=== PATIENT | female | born 1980 | race Caucasian/White ===

== ENCOUNTER 2021-04-19 10:26 | Inpatient (IN) | payer OTHER ==
[2021-04-19 11:24] LABS: BASO % 0.7 % (0-2.0); EOS % 0.7 % (0-4.5); HEMATOCRIT 26.1 % (32.4-45.2); HEMOGLOBIN 8.2 GM/dL (10.7-15.3); LYMPH % 15.1 % (8-40); MCHC 31.6 g/dl (32.0-36.0); MEAN CELL VOLUME 63.2 fl (80-96); MEAN PLT VOLUME 6.8 fl (7.5-11.1); MONO % 8.1 % (3.8-10.2); NEUT % 75.4 % (42.8-82.8); PLATELET COUNT 279 10^3/uL (134-434); RBC 4.12 M/mm3 (3.60-5.2); RDW 18.1 % (11.6-15.6); WHITE BLOOD COUNT 9.8 K/mm3 (4.0-10.0)
[2021-04-19 11:33] LABS: INR 0.92 (0.83-1.09); PROTHROMBIN TIME (PATIENT) 11.3 SEC (9.7-13.0)
[2021-04-19 11:35] LABS: ACTIVATED PTT 21.4 SECONDS (25.2-36.5)
[2021-04-19 11:44] LABS: BLOOD UREA NITROGEN 8.4 mg/dL (7-18); CALCIUM 8.3 mg/dL (8.5-10.1)
[2021-04-19 11:47] LABS: CREATININE 0.5 mg/dL (0.55-1.3)
[2021-04-19 11:54] VITALS: BMI 33.6
[2021-04-19] MEDS ORDERED: ELECTROLYTE-148 SOLN 1,000 ML IV SCH (12:00)
[2021-04-19] MEDS ORDERED: FENTANYL/BUPIVACAINE/NS/PF - PCEA - 50 ML DISP.SYRIN EP ONE ×2 (12:09→14:48)
[2021-04-19] MEDS ORDERED: PCA PUMP NR ONE (12:09)
[2021-04-19] MEDS ORDERED: BUPIVACAINE HCL/PF 0.25% (2.5MG/ML) 10 ML VIAL ONE ×2 (12:18→15:35)
[2021-04-19 12:41] LABS: HIV INTERPRETATION NEGATIVE (NEGATIVE)
[2021-04-19] MEDS ORDERED: NALOXONE HCL 0.4 MG/ML VIAL IVPUSH PRN (12:43)
[2021-04-19] MEDS ORDERED: FENTANYL/BUPIVACAINE/NS/PF - PCEA - 50 ML DISP.SYRIN EP SCH (12:45)
[2021-04-19 14:28] LABS: ANISOCYTOSIS 2+; MACROCYTOSIS 0; OVALOCYTE 1+; PLATELET ESTIMATE NORMAL
[2021-04-19] MEDS ORDERED: OXYTOCIN 30 UNITS in 0.9% NS 30 UNIT/500 ML INFUS.BAG IVPB SCH (15:15)
[2021-04-19] MEDS ORDERED: OXYTOCIN 30 UNITS in 0.9% NS 30 UNIT/500 ML INFUS.BAG IVPB ONE (15:19)
[2021-04-19] MEDS ORDERED: OXYTOCIN 20 UNITS in 0.9% NS 20 UNIT/1,000 ML INFUS.BAG IV ONE (16:06)
[2021-04-19] MEDS ORDERED: LIDOCAINE HCL 1% PRESERVATIVE FREE - 30ML VIAL ONE (16:07)
[2021-04-19] MEDS ORDERED: BISACODYL 10 MG SUPP.RECT RC PRN (16:26)
[2021-04-19] MEDS ORDERED: BENZOCAINE 28 GM HEMORRHOIDAL OINTMENT TP PRN (16:26)
[2021-04-19] MEDS ORDERED: WITCH HAZEL 50% (TUCKS) 40 PAD/JAR PAD TP PRN (16:26)
[2021-04-19] MEDS ORDERED: METHYLERGONOVINE MALEATE 0.2 MG/1 ML AMP IM PRN (16:26)
[2021-04-19] MEDS ORDERED: BENZOCAINE 20% 57 GM BOTTLE TP PRN (16:26)
[2021-04-19] MEDS ORDERED: ACETAMINOPHEN 325 MG TABLET (FP) PO PRN (16:26)
[2021-04-19] MEDS ORDERED: oxyCODONE HCL 5 MG TABLET PO PRN (16:26)
[2021-04-19] MEDS ORDERED: OXYTOCIN 20 UNITS in 0.9% NS 20 UNIT/1,000 ML INFUS.BAG IV SCH (16:30)
[2021-04-19] MEDS ORDERED: IBUPROFEN 600 MG TABLET (FP) PO ONE (17:06)
[2021-04-19] MEDS: IBUPROFEN 600 MG TABLET (FP) PO PRN ×2 (17:10→20:21)
[2021-04-20 08:20] LABS: BASO % 0.5 % (0-2.0); HEMATOCRIT 23.2 % (32.4-45.2); HEMOGLOBIN 7.2 GM/dL (10.7-15.3); LYMPH % 13.9 % (8-40); MCHC 31.1 g/dl (32.0-36.0); MEAN CELL VOLUME 64.2 fl (80-96); MEAN PLT VOLUME 7.3 fl (7.5-11.1); MONO % 6.5 % (3.8-10.2); NEUT % 78.1 % (42.8-82.8); PLATELET COUNT 251 10^3/uL (134-434); RBC 3.61 M/mm3 (3.60-5.2); RDW 17.7 % (11.6-15.6); WHITE BLOOD COUNT 11.7 K/mm3 (4.0-10.0)
[2021-04-20] MEDS: IBUPROFEN 600 MG TABLET (FP) PO PRN ×2 (09:29→21:30)
[2021-04-20] MEDS: PRENATAL VITAMINS W/ FOLIC ACID TABLET (FP) PO SCH (09:29)
[2021-04-20 21:32] VITALS: TEMP 98
[2021-04-20] MEDS ORDERED: SENNOSIDES/DOCUSATE COMBO (SENNA PLUS) TABLET (UD) PO PRN (22:00)
[2021-04-21] MEDS: IBUPROFEN 600 MG TABLET (FP) PO PRN (08:27)
[2021-04-21 08:57] VITALS: BP 121/67; PULSE 72
[2021-04-21] MEDS: PRENATAL VITAMINS W/ FOLIC ACID TABLET (FP) PO SCH (10:28)
== END 2021-04-21 12:53 | disposition home or self-care (01) | DRG 560 ==
LOC: JLDR 10:26 → J3W 17:30
PROVIDERS: ADMIT Obstetrics & Gynecology; ATTEND Obstetrics & Gynecology
PROC: 10E0XZZ Delivery of Products of Conception, External Approach (ICD-10-PCS; principal; 2021-04-19)
DX: O34.219 Maternal care for unspecified type scar from previous cesarean delivery (principal); O32.6XX0 Maternal care for compound presentation, not applicable or unspecified; Z3A.38 38 weeks gestation of pregnancy; Z37.0 Single live birth
CPT/HCPCS: 36415; 59409; 80048; 85025; 85610; 85730; 86780; 86850; 86900; 86901; 87389; C9803; U0003; U0005